=== PATIENT | female | born 1980 | race Caucasian/White ===

== ENCOUNTER → 2016-11-22 | Outpatient (REF) | payer MEDICAID | END | disposition home or self-care (01) | LOC: M SFHCLERA 16:15 | PROVIDERS: ATTEND Physician Assistant | DX: R10.30 Lower abdominal pain, unspecified (principal) ==

== ENCOUNTER → 2016-11-26 | Outpatient (CLI) | payer MEDICAID ==
--- NOTE | 2016-11-26 11:10 | REP ---
PELVIC SONOGRAPHY: HISTORY: Abnormal menses. Lower abdominal pain. FINDINGS: Transabdominal and transvaginal scanning are performed. Uterine dimensions are mildly enlarged at 10.1 x 4.4 x 5.0 cm. Endometrial echo is 1.5 cm thick and centrally placed. A very small sliver of endometrial fluid is seen. Uterine texture is somewhat heterogeneous but no definable mass lesion is seen. There is a 2.7 x 2.5 x 2.2 cm cystic area in the right ovary. Right ovarian dimensions inclusive of this cyst are 3.6 x 3.2 x 3.3 cm. The left ovary was less than optimally visualized but appears to measure 2.4 x 1.6 x 1.8 cm. No left adnexal pathology is appreciated. No free fluid is noted. IMPRESSION: 2.7 cm cystic area in the right ovary. No other abnormalities seen. Slightly prominent uterus. Signed by Dean Mueller MD 11/26/2016 01:18 P
== END | disposition home or self-care (01) ==
LOC: M LRY 09:27
PROVIDERS: ATTEND Physician Assistant
DX: R10.30 Lower abdominal pain, unspecified (principal); N92.6 Irregular menstruation, unspecified; R93.8 Abnormal findings on diagnostic imaging of other specified body structures

== ENCOUNTER → 2016-11-26 | Outpatient (REF) | payer MEDICAID ==
[2016-11-26 11:26] LABS: CONTROL LINE HCG INT CTR LINE PRESENT
[2016-11-26 11:42] LABS: FREE T4 1.05 NG/DL (0.76-1.46)
[2016-11-26 13:54] LABS: PROLACTIN 4.8 NG/ML
== END | disposition home or self-care (01) ==
LOC: M SFHCLERA 08:50
PROVIDERS: ATTEND Family Medicine
DX: Z01.419 Encounter for gynecological examination (general) (routine) without abnormal findings (principal); Z11.51 Encounter for screening for human papillomavirus (HPV); N91.2 Amenorrhea, unspecified; N76.0 Acute vaginitis
CPT/HCPCS: 84146; 84439; 84443; 84703; 87491; 87591; G0123

== ENCOUNTER → 2016-12-13 | Outpatient (CLI) | payer MEDICAID ==
--- NOTE | 2016-12-13 10:34 | REP ---
Right hip two views: Comparisons are the plain film study dated 04/19/2014 and MRI dated 07/25/2014 wall. Mineralization and joint space are normal. There is no femoral head deformity. There are no calcifications. No fracture or dislocation. Impression: Negative plain film study of the right hip. No change from the comparison plain film study. Because of the persisting symptoms right hip MRI and MRI arthrography might be considered to evaluate for avascular necrosis and / or labral tear, both of which could have normal plain film findings. Signed by Bryn Westbrook MD 12/13/2016 10:25 A
== END | disposition home or self-care (01) ==
LOC: M LRY 09:36
PROVIDERS: ATTEND Family Medicine
DX: M25.551 Pain in right hip (principal)

== ENCOUNTER 2017-02-26 05:42 | Day surgery (SDC) | payer MEDICAID, SELFPAY ==
[~2017-02-26] VITALS: Ht 167.6 cm; Wt 79.8 kg
[~2017-02-26 05:42] MED LIST: ALBU17IN INH; ALBU83IN INH
[2017-02-26] MEDS ORDERED: LR 1,000 ML IV SCH ×3 (06:00→10:15)
[2017-02-26 06:05] LABS: MEAN CORPUSCULAR HEMOGLOBIN 30.7 pg (27.0-33.0); MEAN CORPUSCULAR HGB CONC 33.7 g/dl (32.0-36.5); RED CELL DISTRIBUTION WIDTH 11.6 % (11.5-14.5); WHITE BLOOD COUNT 7.9 K/mm3 (4.0-10.0)
[2017-02-26] MEDS ORDERED: METHYLENE BLUE 0.5% (5MG/ML) 10 ML AMP (PROVAYBLUE)(Q9968 PER 1MG) As Ordered ONE (07:14)
[2017-02-26] MEDS ORDERED: BUPIVACAINE HCL 0.25% 30 ML VIAL As Ordered ONE (07:14)
[2017-02-26] MEDS ORDERED: KETOROLAC 60 MG/2 ML VIAL (J1885) As Ordered ONE (08:17)
[2017-02-26] MEDS ORDERED: ONDANSETRON 4MG/2ML VIAL (J2405) As Ordered ONE (08:17)
[2017-02-26] MEDS ORDERED: MIDAZOLAM INJ 2 MG/2 ML VIAL (J2250) As Ordered ONE (08:17)
[2017-02-26] MEDS ORDERED: fentaNYL 250 MCG/5 ML INJECTION (J3010) As Ordered ONE (08:17)
[2017-02-26] MEDS ORDERED: LIDOCAINE 2% INJ 100 MG/5 ML SDV (FOR ANES.) As Ordered ONE (08:17)
[2017-02-26] MEDS ORDERED: METOCLOPRAMIDE INJ 10MG/2ML VIAL (J2765) As Ordered ONE (08:17)
[2017-02-26] MEDS ORDERED: PROPOFOL 200 MG/20 ML VIAL As Ordered ONE (08:18)
[2017-02-26] MEDS ORDERED: NEOSTIGMINE 1MG/ML 5 ML SYRINGE (J2710) As Ordered ONE (08:18)
[2017-02-26] MEDS ORDERED: ROCURONIUM BROMIDE 50 MG/5 ML VIAL As Ordered ONE (08:18)
[2017-02-26] MEDS ORDERED: GLYCOPYRROLATE INJ 0.2 MG/ML 2 ML VIAL As Ordered ONE (08:18)
[2017-02-26] MEDS ORDERED: HYDROmorphone HCL 2 MG/ML 1ML VIAL (J1170) As Ordered ONE (08:31)
[2017-02-26] MEDS ORDERED: OXYC1TAB23 PO (09:40)
[2017-02-26] MEDS ORDERED: fentaNYL 100 MCG/2 ML INJECTION (J3010) IV PRN (10:00)
[2017-02-26] MEDS ORDERED: ONDANSETRON 4MG/2ML VIAL (J2405) IV PRN ×2 (10:00→10:15)
[2017-02-26] MEDS ORDERED: ALBUTEROL 90 MCG/ACT 8GM HFA INHALER INH PRN (10:15)
[2017-02-26] MEDS ORDERED: MORPHINE 4 MG/ML 1ML SYRINGE IV PRN (10:15)
[2017-02-26] MEDS ORDERED: PERCOCET 5MG/325MG TAB PO PRN ×2 (10:15)
[2017-02-26] MEDS ORDERED: KETOROLAC 30 MG/ML VIAL (J1885) IV PRN (10:15)
[2017-02-26] MEDS ORDERED: MORPHINE 2 MG/ML 1ML SYRINGE As Ordered ONE (11:51)
[2017-02-26] MEDS: MORPHINE 2 MG/ML 1ML SYRINGE IV PRN ×2 (11:55→12:05)
--- NOTE | 2017-02-26 12:02 | RO ---
DATE OF PROCEDURE: 02/26/2017 PREPROCEDURE DIAGNOSIS: Menorrhagia. POSTPROCEDURE DIAGNOSIS: Menorrhagia. PROCEDURE: Robotic assisted laparoscopic hysteroscopy, bilateral salpingo-oophorectomy, cystoscopy. SURGEON: Dr. Bandar Whitley. SUPERVISOR FRAME ASSEMBLY: Pippa Falcon NP ANESTHESIA: General endotracheal. ESTIMATED BLOOD LOSS: 100 mL. URINE OUTPUT: 200 mL. FINDINGS: Mildly enlarged uterus with normal fallopian tubes and ovaries bilaterally. Normal upper abdomen. OPERATIVE SUMMARY: The patient was taken to the operating room where general endotracheal anesthesia was induced. She was prepped and draped in a sterile fashion in dorsal lithotomy position. Maloney catheter was placed. A VCare uterine manipulator was placed. A periumbilical incision was made with a scalpel. A Veress needle was placed through this incision. Pneumoperitoneum was created. Veress needle was removed. An 11 mm periumbilical port was placed using Visiport. Three 8 mm suprapubic ports were placed under direct visualization. Patient was placed in Trendelenburg position. Da Chloe surgical robot was docked. Using Monopolar Endoshears and PK dissector, the IP ligament, broad ligament attachments and round ligaments were coagulated and incised. The anterior and posterior leaves of the broad ligament were . A bladder flap was created. Uterine vessels were skeletonized, coagulated, incised. Colpotomy was created using the Monopolar Endoshears and circumferentially along the upper vagina at the level of the VCare cup. Specimen including the uterus, cervix, both ovaries and fallopian tubes was removed. The vaginal cuff was closed with #1 V-loc suture in a running fashion. The pelvis was copiously irrigated. The patient received methylene blue dye intravenously. Cystoscopy was performed using a 7 degree cystoscope. Bilateral ureteral jets were identified. There was no evidence of injury to the bladder. Pippa Falcon NP, assisted from beginning to end of the procedure. She assisted with every step of the procedure. This included positioning of the patient, she manipulated the uterus throughout the entire procedure to allow surgical access. She assisted with removal of the specimen and also closure of the ports. She also undocked the robot as well. The fascia of the umbilical port was closed with #0 Vicryl, skin was closed with #4-0 Monocryl. Sponge, needle and instruments counts were correct.
[2017-02-26 13:00] VITALS: BP 105/57
[2017-02-26] MEDS ORDERED: DOCUSATE SODIUM 100 MG CAP PO SCH (21:00)
== END 2017-02-26 17:35 | disposition home or self-care (01) ==
LOC: M SDC 05:42 → M MS5PR 12:30 → M SDC 17:35
PROVIDERS: ATTEND Specialist
DX: N92.0 Excessive and frequent menstruation with regular cycle (principal); R10.2 Pelvic and perineal pain; J45.909 Unspecified asthma, uncomplicated; F17.210 Nicotine dependence, cigarettes, uncomplicated
CPT/HCPCS: 36415; 58571; 85027; 88309; J0690; J1170; J1885; J2250; J2405; J2710; J2765; J3010; Q9968

== ENCOUNTER → 2017-03-24 | Outpatient (CLI) | payer OTHER, MEDICAID ==
[~2017-03-24] MED LIST changes: +OXYC1TAB23 PO
--- NOTE | 2017-03-24 18:30 | REP ---
Clinical: Acute coccygeal pain. Technique: AP and lateral views of the sacrum and coccyx. Findings: The sacroiliac joints appear symmetric and normal. The sacrum appears intact. Acute angulation at the sacrococcygeal articulation on lateral radiograph may reflect acute versus old injury and should be correlated with physical examination and history. Impression: Acute angulation at the sacrococcygeal articulation is nonspecific and may represent acute versus chronic injury. Correlation with history and tenderness recommended. Signed by Nasim iRck MD 03/24/2017 06:22 P
--- NOTE | 2017-03-24 18:31 | REP ---
Clinical: Left-sided chest and rib pain . Comparison: 01/09/2010 . Technique: PA and lateral. Findings: The mediastinum and cardiac silhouette are normal. The lung dc are clear and without acute consolidation, effusion, or pneumothorax. The skeletal structures are intact and normal. Impression: 1. No acute cardiopulmonary process. Signed by Nasim Rick MD 03/24/2017 06:22 P
== END ==
LOC: M LRY 18:03
PROVIDERS: ATTEND Physician Assistant
DX: R07.81 Pleurodynia (principal); M53.3 Sacrococcygeal disorders, not elsewhere classified; R93.7 Abnormal findings on diagnostic imaging of other parts of musculoskeletal system

== ENCOUNTER → 2017-07-28 | Outpatient (CLI) | payer MEDICAID, OTHER ==
--- NOTE | 2017-07-28 11:00 | REP ---
REASON: Thumb pain. PRIORS: None. FINDINGS: No acute fracture or destructive osseous lesion. Signed by Balbir Mendenhall DO 07/28/2017 02:23 P
== END ==
LOC: M LRY 09:43
PROVIDERS: ATTEND Physician Assistant
DX: M79.644 Pain in right finger(s) (principal)

== ENCOUNTER → 2017-10-06 | Outpatient (REF) | payer OTHER | LOC: M SFHCLERA 20:04 | PROVIDERS: ATTEND Nurse Practitioner Family | DX: J02.9 Acute pharyngitis, unspecified (principal) ==

== ENCOUNTER → 2017-12-24 | Outpatient (CLI) | payer OTHER | LOC: M RAD 07:41 | DX: M47.812 Spondylosis without myelopathy or radiculopathy, cervical region (principal); M51.16 Intervertebral disc disorders with radiculopathy, lumbar region | CPT/HCPCS: 72141 ==

== ENCOUNTER 2017-12-29 20:48 | Emergency (ER) | payer OTHER ==
[2017-12-29] MEDS: KETOROLAC 60 MG/2 ML VIAL (J1885) IM (23:00)
[2017-12-29] MEDS: diazePAM 5 MG TAB PO (23:00)
== END 2017-12-30 00:02 | disposition home or self-care (01) ==
LOC: M ED 12-30 00:02
DX: M54.41 Lumbago with sciatica, right side (principal); M51.9 Unspecified thoracic, thoracolumbar and lumbosacral intervertebral disc disorder; Z87.891 Personal history of nicotine dependence
CPT/HCPCS: J1885

== ENCOUNTER 2018-05-31 23:26 | Emergency (ER) | payer OTHER ==
[2018-06-01 01:35] LABS: BASO # 0.1 10^3/uL (0.0-0.2); BASO % 0.5 % (0.0-1.0); EOS # 0.1 10^3/uL (0.0-0.50); EOS % 1.1 % (0.0-3.0); HEMATOCRIT 39.7 % (36.0-47.0); IMMATURE GRANULOCYTE % 0.4 % (0-3.0); LYMPH # 3.3 10^3/uL (1.5-4.5); LYMPH % 32.3 % (24.0-44.0); MEAN CORPUSCULAR HEMOGLOBIN 28.8 pg (27.0-33.0); MEAN CORPUSCULAR HGB CONC 32.7 g/dl (32.0-36.5); MEAN CORPUSCULAR VOLUME 87.8 fl (80.0-96.0); MONO # 0.7 10^3/uL (0.0-0.8); MONO % 6.6 % (0.0-5.0); NEUTROPHILS % 59.1 % (36.0-66.0); PLATELET COUNT, AUTOMATED 264 10^3/uL (150-450); RED BLOOD COUNT 4.52 10^6/uL (4.00-5.40); WHITE BLOOD COUNT 10.1 10^3/uL (4.0-10.0)
[2018-06-01 02:14] LABS: ALBUMIN 3.7 GM/DL (3.2-5.2); ALBUMIN/GLOBULIN RATIO 1.03 (1.00-1.93); ALKALINE PHOSPHATASE 122 U/L (45-117); ALT/SGPT 44 U/L (12-78); ANION GAP 5 MEQ/L (8-16); AST/SGOT 30 U/L (7-37); BILIRUBIN,DIRECT < 0.1 MG/DL (0.0-0.2); BILIRUBIN,TOTAL 0.2 MG/DL (0.2-1.0); BLOOD UREA NITROGEN 11 MG/DL (7-18); CARBON DIOXIDE LEVEL 33 MEQ/L (21-32); CHLORIDE LEVEL 104 MEQ/L (98-107); GLOMERULAR FILTRATION RATE > 60.0 (>60); GLUCOSE, FASTING 104 MG/DL (70-100); POTASSIUM SERUM 4.5 MEQ/L (3.5-5.1); SODIUM LEVEL 142 MEQ/L (136-145); TOTAL PROTEIN 7.3 GM/DL (6.4-8.2)
== END 2018-06-01 02:50 | disposition home or self-care (01) ==
LOC: M ED 23:26
DX: K59.00 Constipation, unspecified (principal); J45.909 Unspecified asthma, uncomplicated; Z87.891 Personal history of nicotine dependence
CPT/HCPCS: 76705

== ENCOUNTER 2018-09-05 21:54 | Emergency (ER) | payer OTHER ==
[2018-09-05] MEDS: NS 1,000 ML IV (22:15)
[2018-09-05] MEDS: ONDANSETRON 4MG/2ML VIAL (J2405) IV (22:15)
[2018-09-05 22:34] LABS: BASO # 0.1 10^3/uL (0.0-0.2); BASO % 0.6 % (0.0-1.0); EOS # 0.1 10^3/uL (0.0-0.50); EOS % 1.3 % (0.0-3.0); HEMOGLOBIN 13.6 g/dl (12.0-15.5); IMMATURE GRANULOCYTE % 0.3 % (0-3.0); LYMPH # 3.3 10^3/uL (1.5-4.5); LYMPH % 34.8 % (24.0-44.0); MEAN CORPUSCULAR HEMOGLOBIN 28.8 pg (27.0-33.0); MEAN CORPUSCULAR HGB CONC 33.2 g/dl (32.0-36.5); MEAN CORPUSCULAR VOLUME 86.7 fl (80.0-96.0); MONO # 0.6 10^3/uL (0.0-0.8); MONO % 6.3 % (0.0-5.0); NEUTROPHILS # 5.5 10^3/uL (1.8-7.7); NEUTROPHILS % 56.7 % (36.0-66.0); PLATELET COUNT, AUTOMATED 269 10^3/uL (150-450); RED BLOOD COUNT 4.73 10^6/uL (4.00-5.40); RED CELL DISTRIBUTION WIDTH 12.3 % (11.5-14.5); WHITE BLOOD COUNT 9.6 10^3/uL (4.0-10.0)
[2018-09-05 22:55] LABS: CALCIUM OXALATE CRYSTALS RFX LARGE; KETONE, URINE AUTO RFX TRACE mg/dL (NEGATIVE); LEUKOCYTE ESTERASE UR AUTO RFX TRACE (NEGATIVE); MUCUS, URINE RFX LARGE (NEGATIVE); NITRITE, URINE AUTO RFX NEGATIVE (NEGATIVE); RBC, URINE AUTO RFX 0 /HPF (0-3); SPECIFIC GRAVITY UR AUTO RFX 1.033 (1.002-1.035); SQUAM EPITHELIAL CELL UR AURFX 13 /HPF (0-6); WBC, URINE AUTO RFX 5 /HPF (0-3)
[2018-09-05 22:58] LABS: ALBUMIN 4.1 GM/DL (3.2-5.2); ALKALINE PHOSPHATASE 128 U/L (45-117); ALT/SGPT 38 U/L (12-78); ANION GAP 5 MEQ/L (8-16); AST/SGOT 28 U/L (7-37); BILIRUBIN,DIRECT < 0.1 MG/DL (0.0-0.2); BILIRUBIN,TOTAL 0.3 MG/DL (0.2-1.0); BLOOD UREA NITROGEN 11 MG/DL (7-18); CALCIUM LEVEL 9.5 MG/DL (8.5-10.1); CARBON DIOXIDE LEVEL 32 MEQ/L (21-32); CHLORIDE LEVEL 104 MEQ/L (98-107); CREATININE FOR GFR 1.07 MG/DL (0.55-1.30); GLOMERULAR FILTRATION RATE > 60.0 (>60); GLUCOSE, FASTING 78 MG/DL (70-100); LIPASE 124 U/L (73-393); POTASSIUM SERUM 3.8 MEQ/L (3.5-5.1); SODIUM LEVEL 141 MEQ/L (136-145); TOTAL PROTEIN 8.2 GM/DL (6.4-8.2)
[2018-09-05] MEDS ORDERED: ISOVUE-370 76% 100ML VIAL (Q9967) As Ordered (23:02)
== END 2018-09-06 00:09 | disposition home or self-care (01) ==
LOC: M ED 09-06 00:09
DX: K76.0 Fatty (change of) liver, not elsewhere classified (principal); M54.30 Sciatica, unspecified side
CPT/HCPCS: J2405

== ENCOUNTER → 2018-09-09 | Outpatient (REF) | payer OTHER | LOC: M LAB REF 14:24 | DX: R19.7 Diarrhea, unspecified (principal) | CPT/HCPCS: 87507 ==

== ENCOUNTER → 2018-12-24 | Outpatient (CLI) | payer OTHER ==
[~2018-12-24] MED LIST changes: +KETO10TAB PO; +NEUR600T PO; +VALI5TAB PO; +ZOFR4TAB14 PO
--- NOTE | 2018-12-24 15:41 | REP ---
RIGHT BREAST ULTRASOUND: 12/24/2018. Clinical history: Palpable area in the lower outer quadrant right breast for sonography to compare to mammogram. She also reports upper inner quadrant palpable finding at about the 1 o'clock position in addition. Findings: Sonographic evaluation of the lower outer quadrant of the right breast in the region of the palpable area centered at the 7 to 8 o'clock position, but scanned from 6 to 9 o'clock. Patient also stated she had a lump at the 1 o'clock position upper inner quadrant right breast. In the lower outer quadrant 7 to 8 o'clock position where she had a reported palpable finding there is echogenic heterogeneous dense breast tissue without discrete mass, architectural distortion, dilated duct or cyst. In the upper inner quadrant at the 1 o'clock position where she reports a palpable finding there is likewise no mass, cyst, architectural distortion or dilated duct. Impression: 1. Two palpable areas in the upper inner and the lower outer quadrant right breast were scanned with sonographic technique and show no definable mass, cyst, architectural distortion or dilated duct. 2. BI-RADS ACR category 1 negative. Please see mammogram report for final assessment and recommendation. Electronically Signed by Last Russell MD 12/24/2018 07:35 P
--- NOTE | 2018-12-24 15:47 | REP ---
DIAGNOSTIC DIGITAL RIGHT MAMMOGRAM: 12/24/2018. Comparison: Right breast ultrasound this date. Clinical history: Baseline mammogram with palpable finding lower outer quadrant right breast and also she stated to the electroencephalograph technologist, a palpable area at 1 o'clock. Findings: This is a baseline mammogram. Standard CC and MLO views with spot magnified CC, MLO and true ML images of the lower outer quadrant right breast along with CC and MLO, tomosynthesis views of the whole breast. Marker placed by the patient at the area of her reported palpable finding. There are scattered fibroglandular elements fairly evenly distributed in the breast parenchyma and which may obscure a lesion. I see no dominant mass, area of architectural distortion, suspicious cluster of microcalcification or other secondary sign of malignancy on the standard views. A few fat replaced axillary nodes are seen on the right. The spot magnified CC, MLO and true ML views show no underline mass, architectural distortion, clustered microcalcification or other secondary sign of malignancy. The tomosynthesis views show nothing in this area. Standard and tomosynthesis views also show nothing in the upper inner quadrant at the 1 o'clock position where she also described a reported finding. Right breast ultrasound lower out quadrant centered at 7 to 8 o'clock but scanning the entire quadrant and also at the 1 o'clock position upper inner quadrant demonstrated no dominant mass, architectural distortion, cyst or dilated duct. Impression: 1. BIRADS 2: BI-RADS/ACR category 2 mammogram. Benign Findings. No evidence of malignancy. 2. Recommend followup mammography at age 41 or sooner if clinically indicated. The patient's Tyrer-Cuzick lifetime risk assessment score is 17.9%. This mammogram was interpreted with the aid of an FDA-approved computer-aided detection system. The patient states she/he had a clinical breast exam in 12/22/2018. Electronically Signed by Last Russell MD 12/24/2018 07:36 P
== END ==
LOC: M RAD 14:02
PROVIDERS: ATTEND Nurse Practitioner Family
DX: N63.13 Unspecified lump in the right breast, lower outer quadrant (principal)
CPT/HCPCS: 76642; 77065; G0279

== ENCOUNTER → 2018-12-31 | Outpatient (REF) | payer OTHER | LOC: M SFHCLERA 15:55 | PROVIDERS: ATTEND Nurse Practitioner Family | DX: R50.9 Fever, unspecified (principal) ==

== ENCOUNTER → 2019-10-20 | Outpatient (CLI) | payer OTHER | LOC: M LRY 15:37 | PROVIDERS: ATTEND Nurse Practitioner Family | DX: Z53.9 Procedure and treatment not carried out, unspecified reason (principal); M25.532 Pain in left wrist ==

== ENCOUNTER → 2019-10-21 | Outpatient (CLI) | payer BC, OTHER ==
--- NOTE | 2019-10-21 13:39 | REP ---
Four views left wrist: 10/20/2019. Indication: Left wrist pain. Comparison: None. Findings: There is no acute fracture, subluxation or dislocation. No lytic or blastic lesions are present. Impression: No acute osseous left wrist injury. Electronically Signed by Steven Rehman DO 10/20/2019 04:10 P
== END ==
LOC: M LRY 10-20 15:33
PROVIDERS: ATTEND Nurse Practitioner Family
DX: M25.532 Pain in left wrist (principal)

== ENCOUNTER → 2020-04-17 | Outpatient (CLI) | payer BC, OTHER ==
--- NOTE | 2020-04-17 09:05 | REPPI ---
Clinical: Lumbago with right-sided sciatica. Technique: AP, lateral, bilateral oblique and coned-down views of the lumbosacral spine. Findings: Alignment and lordosis maintained. Minimal endplate sclerosis and disc space narrowing at L5-S1 cannot be excluded along with very subtle marginal spurring at L1-2 and L2-3 without significant disc space narrowing. No further degenerative changes are noted. No acute fracture / compression injury or subluxation. No obvious spondylolysis or spondylolisthesis. Impression: Minimal degenerative changes suggested. If the patient remains symptomatic consider MRI for further investigation. Electronically Signed by Nasim Rick MD 04/17/2020 08:57 A
--- NOTE | 2020-04-17 09:09 | REPPI ---
Clinical: Lumbago with right-sided sciatica. Technique: Frontal view of the pelvis with neutral and frog lateral views of the right hip. Findings: Osseous structures are intact and there is no evidence for acute fracture dislocation. Hip joints demonstrate mild age-related changes including increase sclerosis to the acetabular roof with superior joint space narrowing and very early marginal spurring. 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 Electronically Signed by Nasim Rick MD 04/17/2020 09:01 A
== END ==
LOC: M PLAIMG 08:36
PROVIDERS: ATTEND Physician Assistant
DX: M54.41 Lumbago with sciatica, right side (principal)

== ENCOUNTER 2020-05-24 21:36 | Emergency (ER) | payer BC, OTHER ==
[~2020-05-24] VITALS: Ht 167.6 cm; Wt 85.9 kg
[2020-05-24] MEDS ORDERED: GABA-843 PO (21:49)
[2020-05-24] MEDS ORDERED: NAPR-885 PO (21:49)
[2020-05-24] MEDS ORDERED: GABAPENTIN 300 MG CAP PO ONE (23:15)
[2020-05-24] MEDS ORDERED: CYCLOBENZAPRINE 10MG TABLET PO ONE (23:15)
[2020-05-25] MEDS ORDERED: KETOROLAC 60MG 2ML VIAL IM ONE
[2020-05-25] MEDS ORDERED: LIDOCAINE 5% (LIDODERM) PATCH TD ONE (00:15)
[2020-05-25] MEDS ORDERED: diazePAM 5 MG TAB PO ONE (00:15)
[2020-05-25] MEDS ORDERED: CYCL5TAB PO (01:49)
[2020-05-25 02:07] VITALS: BP 120/76
[2020-05-25] MEDS ORDERED: **NOTE PATIENT COMMENT** MISC XX SCH (21:00)
== END 2020-05-25 02:09 | disposition home or self-care (01) ==
LOC: M ED 21:36
DX: M54.41 Lumbago with sciatica, right side (principal); M62.830 Muscle spasm of back; J45.909 Unspecified asthma, uncomplicated; Z79.1 Long term (current) use of non-steroidal anti-inflammatories (NSAID); Z79.899 Other long term (current) drug therapy
CPT/HCPCS: 96372; 99283; J1885

== ENCOUNTER → 2020-06-28 | Outpatient (CLI) | payer BC ==
[~2020-06-28] MED LIST changes: +CYCL5TAB PO; +GABA-843 PO; +NAPR-885 PO
[2020-06-28 14:34] LABS: FOLATE 20.8 NG/ML (>5.4); RHEUMATOID FACTOR QUANT < 10.0 IU/ML (<15.0); TOTAL PROTEIN 7.1 GM/DL (6.4-8.2); VITAMIN B12 LEVEL 418 PG/ML (247-911)
[2020-06-28 15:37] LABS: HEMOGLOBIN A1c 5.9 %
[2020-06-29 13:11] LABS: ALBUMIN 4.08 GM/DL (3.29-5.55); ALBUMIN % 57.4 % (55.8-66.1); ALPHA-1-GLOBULIN % 4.6 % (2.9-4.9); ALPHA-1-GLOBULINS 0.33 GM/DL (0.17-0.41); ALPHA-2-GLOBULINS 0.86 GM/DL (0.42-0.99); ALPHA-2-GLOBULINS % 12.1 % (7.1-11.8); BETA-1-GLOBULINS 0.46 GM/DL (0.28-0.60); BETA-1-GLOBULINS % 6.5 % (4.7-7.2); BETA-2-GLOBULINS 0.45 GM/DL (0.19-0.55); BETA-2-GLOBULINS % 6.4 % (3.2-6.5); GAMMA GLOBULINS 0.92 GM/DL (0.65-1.58)
[2020-06-29 14:14] LABS: ANTINUCLEAR ANTIBODIES DIRECT Negative (Negative)
[2020-07-04 12:25] LABS: DRVV SCREEN 44.8 SEC
[2020-07-04 12:27] LABS: PTT LUPUS TYPE ANTICOAG SCREEN 1.1 (0-1.2)
== END ==
LOC: M PLALAB 12:02
PROVIDERS: ATTEND Psychiatry & Neurology Neurology
DX: M54.5 Low back pain (principal); G62.9 Polyneuropathy, unspecified

== ENCOUNTER → 2020-10-07 | Outpatient (CLI) | payer BC ==
[2020-10-07 09:41] LABS: PLATELET COUNT, AUTOMATED 229 10^3/uL (150-450)
[2020-10-07 09:53] LABS: INR 0.98; PARTIAL THROMBOPLASTIN TIME 27.4 SECONDS (24.2-38.5); PROTHROMBIN TIME 13.2 SECONDS (12.5-14.3)
== END ==
LOC: M LAB 08:59
PROVIDERS: ATTEND Physician Assistant
DX: M51.36 Other intervertebral disc degeneration, lumbar region (principal); M48.061 Spinal stenosis, lumbar region without neurogenic claudication; M54.16 Radiculopathy, lumbar region

== ENCOUNTER → 2020-10-11 | Outpatient (CLI) | payer BC | LOC: M LABSMTC 10:47 | PROVIDERS: ATTEND Physical Medicine & Rehabilitation | DX: Z01.812 Encounter for preprocedural laboratory examination (principal); Z20.828 Contact with and (suspected) exposure to other viral communicable diseases ==

== ENCOUNTER → 2021-11-22 | Outpatient (REF) | payer BC ==
[~2021-11-22] MED LIST changes: +GABA-282 PO; -GABA-843 PO
[2021-11-23 12:21] LABS: BASO # 0.1 10^3/uL (0.0-0.2); BASO % 0.6 % (0.0-1.0); EOS # 0.1 10^3/uL (0.0-0.5); EOS % 0.9 % (0.0-3.0); HEMATOCRIT 44.6 % (36.0-47.0); LYMPH # 2.7 10^3/uL (1.5-5.0); MEAN CORPUSCULAR HEMOGLOBIN 27.7 pg (27.0-33.0); MEAN CORPUSCULAR HGB CONC 31.4 g/dl (32.0-36.5); MEAN CORPUSCULAR VOLUME 88.1 fl (80.0-96.0); MONO # 0.7 10^3/uL (0.0-0.8); MONO % 6.9 % (2.0-8.0); NEUTROPHILS # 7.1 10^3/uL (1.5-8.5); NEUTROPHILS % 66.2 % (36.0-66.0); PLATELET COUNT, AUTOMATED 297 10^3/uL (150-450); RED BLOOD COUNT 5.06 10^6/uL (4.00-5.40); WHITE BLOOD COUNT 10.7 10^3/uL (4.0-10.0)
[2021-11-23 13:01] LABS: ALBUMIN 3.6 GM/DL (3.2-5.2); ALT/SGPT 48 U/L (12-78); BILIRUBIN,TOTAL 0.2 MG/DL (0.2-1.0); BLOOD UREA NITROGEN 9 MG/DL (7-18); CALCIUM LEVEL 9.3 MG/DL (8.5-10.1); CARBON DIOXIDE LEVEL 29 MEQ/L (21-32); CHLORIDE LEVEL 102 MEQ/L (98-107); CREATININE FOR GFR 0.87 MG/DL (0.55-1.30); GLOMERULAR FILTRATION RATE > 60.0 (>58); GLUCOSE, FASTING 84 MG/DL (70-100); POTASSIUM SERUM 6.3 MEQ/L (3.5-5.1); SODIUM LEVEL 136 MEQ/L (136-145); TOTAL PROTEIN 7.4 GM/DL (6.4-8.2)
== END ==
LOC: M SFHCCLAY 14:55
PROVIDERS: ATTEND Nurse Practitioner Family
DX: J45.901 Unspecified asthma with (acute) exacerbation (principal)

== ENCOUNTER → 2021-12-06 | Outpatient (REF) | payer BC | LOC: M SFHCCLAY 10:08 | PROVIDERS: ATTEND Physician Assistant | DX: E87.5 Hyperkalemia (principal) ==

== ENCOUNTER → 2023-02-12 | Outpatient (REF) | payer BC ==
[~2023-02-12] MED LIST changes: +ALBU2.5V10 INH; -ALBU83IN INH
[2023-02-12 18:01] LABS: ALBUMIN 3.5 G/DL (3.2-5.2); ALKALINE PHOSPHATASE 120 U/L (46-116); ALT/SGPT 52 U/L (7.0-40); AST/SGOT 22 U/L (<34); BILIRUBIN,TOTAL 0.7 MG/DL (0.3-1.2); BLOOD UREA NITROGEN 12 MG/DL (9-23); CARBON DIOXIDE LEVEL 31 MMOL/L (20-31); CHLORIDE LEVEL 104 MMOL/L (98-107); CREATININE FOR GFR 0.88 MG/DL (0.55-1.30); GLOMERULAR FILTRATION RATE > 60.0 (>58); GLUCOSE, FASTING 123 MG/DL (60-100); POTASSIUM SERUM 4.4 MMOL/L (3.5-5.1); SODIUM LEVEL 138 MMOL/L (136-145); TOTAL PROTEIN 6.7 G/DL (5.7-8.2)
[2023-02-12 18:03] LABS: RHEUMATOID FACTOR QUANT 6.8 IU/ML (<14)
== END ==
LOC: M LABDRAWC 17:13
PROVIDERS: ATTEND Physician Assistant
DX: M47.896 Other spondylosis, lumbar region (principal)

== ENCOUNTER → 2023-05-02 | Outpatient (CLI) | payer BC | LOC: M PLAIMG 14:14 | PROVIDERS: ATTEND Physician Assistant | DX: M24.151 Other articular cartilage disorders, right hip (principal) ==

== ENCOUNTER → 2023-07-22 | Outpatient (CLI) | payer BC ==
[2023-07-22 10:46] LABS: URIC ACID 6.9 MG/DL (3.1-7.8)
[2023-07-22 10:49] LABS: RHEUMATOID FACTOR QUANT < 3.5 IU/ML (<14)
[2023-07-23 21:07] LABS: ANTINUCLEAR ANTIBODIES DIRECT Negative (Negative); CYCLIC CITRULLINATED PEPTIDE 1 units (0-19)
== END ==
LOC: M LAB 09:47
PROVIDERS: ATTEND Orthopaedic Surgery
DX: M25.551 Pain in right hip (principal)

== ENCOUNTER 2024-01-25 16:17 | Emergency (ER) | payer BC ==
[~2024-01-25] VITALS: Ht 167.6 cm; Wt 86.1 kg
[2024-01-25] MEDS: ASPIRIN 81MG CHEW TABLET PO ONE (17:02)
[2024-01-25 17:12] LABS: BASO # 0.1 10^3/uL (0.0-0.2); BASO % 0.9 % (0.0-1.0); EOS # 0.1 10^3/uL (0.0-0.5); EOS % 1.3 % (0.0-3.0); HEMATOCRIT 42.5 % (36.0-47.0); HEMOGLOBIN 13.7 g/dl (12.0-15.5); LYMPH # 2.8 10^3/uL (1.5-5.0); LYMPH % 30.7 % (24.0-44.0); MEAN CORPUSCULAR HEMOGLOBIN 27.9 pg (27.0-33.0); MEAN CORPUSCULAR HGB CONC 32.2 g/dl (32.0-36.5); MEAN CORPUSCULAR VOLUME 86.6 fl (80.0-96.0); MONO # 0.6 10^3/uL (0.0-0.8); NEUTROPHILS # 5.4 10^3/uL (1.5-8.5); NEUTROPHILS % 59.8 % (36.0-66.0); PLATELET COUNT, AUTOMATED 266 10^3/uL (150-450); RED BLOOD COUNT 4.91 10^6/uL (4.00-5.40)
[2024-01-25 17:27] LABS: CK-MB VALUE MASS < 1.0 NG/ML (<3.6)
[2024-01-25 17:28] LABS: BLOOD UREA NITROGEN 12 MG/DL (9-23); CALCIUM LEVEL 9.1 MG/DL (8.5-10.1); CARBON DIOXIDE LEVEL 31 MMOL/L (20-31); CHLORIDE LEVEL 106 MMOL/L (98-107); CPK CREATINE PHOSPHOKINASE 125 U/L (34-145); CREATININE FOR GFR 0.86 MG/DL (0.55-1.30); GLOMERULAR FILTRATION RATE > 60.0 (>58); GLUCOSE, FASTING 93 MG/DL (60-100); POTASSIUM SERUM 3.6 MMOL/L (3.5-5.1); SODIUM LEVEL 141 MMOL/L (136-145)
[2024-01-25 18:19] VITALS: BP 123/72; TEMP 98.2; O2SAT 99
[2024-01-25 18:31] LABS: CK-MB VALUE MASS < 1.0 NG/ML (<3.6)
[2024-01-25 18:35] LABS: CPK CREATINE PHOSPHOKINASE 115 U/L (34-145); MB/CK RELATIVE INDEX 0.86 (< OR =4)
== END 2024-01-25 18:22 | disposition home or self-care (01) ==
LOC: M ED 16:17
DX: R07.9 Chest pain, unspecified (principal); J45.909 Unspecified asthma, uncomplicated; R94.31 Abnormal electrocardiogram [ECG] [EKG]; Z79.51 Long term (current) use of inhaled steroids

== ENCOUNTER 2025-01-26 15:34 | Emergency (ER) | payer BC ==
[~2025-01-26] VITALS: Ht 167.6 cm; Wt 86.2 kg
[~2025-01-26 15:34] MED LIST changes: -CYCL5TAB PO; +CYCL5TAB4 PO; +GABA-1172 PO; -GABA-282 PO
[2025-01-26] MEDS: ONDANSETRON 4MG 2ML VIAL IV ONE (17:11)
[2025-01-26] MEDS: MORPHINE 4 MG/ML 1ML VIAL IV ONE (17:11)
[2025-01-26 17:22] LABS: BASO # 0.1 10^3/uL (0.0-0.2); BASO % 0.3 % (0.0-1.0); EOS % 0.1 % (0.0-3.0); HEMATOCRIT 44.6 % (36.0-47.0); HEMOGLOBIN 14.8 g/dl (12.0-15.5); LYMPH # 0.9 10^3/uL (1.5-5.0); LYMPH % 5.9 % (24.0-44.0); MEAN CORPUSCULAR HEMOGLOBIN 28.4 pg (27.0-33.0); MEAN CORPUSCULAR HGB CONC 33.2 g/dl (32.0-36.5); MEAN CORPUSCULAR VOLUME 85.6 fl (80.0-96.0); MONO # 0.7 10^3/uL (0.0-0.8); MONO % 4.6 % (2.0-8.0); NEUTROPHILS # 12.9 10^3/uL (1.5-8.5); NEUTROPHILS % 88.5 % (36.0-66.0); PLATELET COUNT, AUTOMATED 278 10^3/uL (150-450); RED BLOOD COUNT 5.21 10^6/uL (4.00-5.40); WHITE BLOOD COUNT 14.5 10^3/uL (4.0-10.0)
[2025-01-26 17:43] LABS: ALBUMIN 4.1 G/DL (3.2-5.2); BILIRUBIN,DIRECT 0.2 MG/DL (<0.4); BILIRUBIN,TOTAL 0.6 MG/DL (0.3-1.2); TOTAL PROTEIN 8.1 G/DL (5.7-8.2)
[2025-01-26] MEDS: METOCLOPRAMIDE INJ 10MG/2ML VIAL IV ONE (19:12)
[2025-01-26] MEDS: KETOROLAC 30 MG/ML 1ML VIAL IV ONE (19:14)
[2025-01-26] MEDS ORDERED: REGL10TA6 PO (20:24)
[2025-01-26 20:48] VITALS: BP 109/73; TEMP 99; O2SAT 95
== END 2025-01-26 20:51 | disposition home or self-care (01) ==
LOC: M ED 15:34
DX: A08.39 Other viral enteritis (principal); B34.8 Other viral infections of unspecified site; R11.2 Nausea with vomiting, unspecified; R19.7 Diarrhea, unspecified; J45.909 Unspecified asthma, uncomplicated; Z87.891 Personal history of nicotine dependence; Z88.5 Allergy status to narcotic agent; Z79.51 Long term (current) use of inhaled steroids
CPT/HCPCS: 80047; 80076; 83690; 85025; 87486; 87507; 87581; 87633; 87798; 96374; 96375; 99284; J1885; J2405; J2765

== ENCOUNTER → 2025-07-26 | Outpatient (REF) | payer BC ==
[~2025-07-26] MED LIST changes: +REGL10TA6 PO
[2025-07-26 19:17] LABS: ALT/SGPT 23 U/L (7.0-40); AST/SGOT 20 U/L (<34); BASO # 0.1 10^3/uL (0.0-0.2); BASO % 1.0 % (0.0-1.0); CALCIUM LEVEL 9.0 MG/DL (8.5-10.1); CARBON DIOXIDE LEVEL 32 MMOL/L (20-31); CHLORIDE LEVEL 103 MMOL/L (98-107); CHOLESTEROL LEVEL 146 MG/DL (<200); CHOLESTEROL RISK RATIO 3.02 (<5); CREATININE FOR GFR 0.73 MG/DL (0.55-1.30); EOS # 0.2 10^3/uL (0.0-0.5); EOS % 2.4 % (0.0-3.0); GLOMERULAR FILTRATION RATE > 90.0 (>58); LDL CHOLESTEROL 68.2 MG/DL (<100); LYMPH # 3.6 10^3/uL (1.5-5.0); LYMPH % 43.7 % (24.0-44.0); MONO # 0.6 10^3/uL (0.0-0.8); MONO % 7.3 % (2.0-8.0); NEUTROPHILS # 3.8 10^3/uL (1.5-8.5); NEUTROPHILS % 45.4 % (36.0-66.0); NON-HDL-C 97.8 MG/DL; PLATELET COUNT, AUTOMATED 251 10^3/uL (150-450); POTASSIUM SERUM 4.1 MMOL/L (3.5-5.1); SODIUM LEVEL 140 MMOL/L (136-145); TRIGLYCERIDES LEVEL 148 MG/DL (<150)
[2025-07-26 19:18] LABS: TOTAL 25(OH) VITAMIN D 25.0 NG/ML (20.0-100.0)
[2025-07-26 20:03] LABS: ESTIMATED AVERAGE GLUCOSE 114.0 MG/DL (60-110)
== END ==
LOC: M SFHCLERA 09:06
PROVIDERS: ATTEND Internal Medicine
DX: Z00.00 Encounter for general adult medical examination without abnormal findings (principal); R53.83 Other fatigue

== ENCOUNTER → 2025-09-02 | Outpatient (REF) | payer BC ==
[2025-09-02 18:27] LABS: FREE T4 1.17 NG/DL (0.89-1.76)
== END ==
LOC: M SFHCLERA 10:53
PROVIDERS: ATTEND Internal Medicine
DX: E03.9 Hypothyroidism, unspecified (principal)

== ENCOUNTER → 2025-10-21 | Outpatient (CLI) | payer BC | LOC: M WHC 08:06 | PROVIDERS: ATTEND Internal Medicine | DX: R92.323 Mammographic fibroglandular density, bilateral breasts (principal); R92.2 Inconclusive mammogram ==

== ENCOUNTER → 2025-10-24 | Outpatient (REF) | payer BC ==
[2025-10-24 18:56] LABS: CALCIUM LEVEL 9.2 MG/DL (8.5-10.1); CARBON DIOXIDE LEVEL 34 MMOL/L (20-31); CHLORIDE LEVEL 102 MMOL/L (98-107); CREATININE FOR GFR 0.73 MG/DL (0.55-1.30); GLOMERULAR FILTRATION RATE > 90.0 (>58); POTASSIUM SERUM 4.5 MMOL/L (3.5-5.1); SODIUM LEVEL 142 MMOL/L (136-145)
[2025-10-24 19:00] LABS: FREE T4 1.47 NG/DL (0.89-1.76)
[2025-10-24 19:16] LABS: BASO # 0.1 10^3/uL (0.0-0.2); BASO % 0.9 % (0.0-1.0); EOS # 0.1 10^3/uL (0.0-0.5); EOS % 2.0 % (0.0-3.0); LYMPH # 2.4 10^3/uL (1.5-5.0); LYMPH % 34.9 % (24.0-44.0); MONO # 0.6 10^3/uL (0.0-0.8); MONO % 8.2 % (2.0-8.0); NEUTROPHILS # 3.8 10^3/uL (1.5-8.5); NEUTROPHILS % 53.7 % (36.0-66.0); PLATELET COUNT, AUTOMATED 262 10^3/uL (150-450)
== END ==
LOC: M SFHCLERA 09:05
PROVIDERS: ATTEND Internal Medicine
DX: E03.8 Other specified hypothyroidism (principal); H93.A9 Pulsatile tinnitus, unspecified ear

== ENCOUNTER → 2025-10-25 | Outpatient (CLI) | payer BC ==
[~2025-10-25] MED LIST changes: +ISOVUE-370 76% 100 ML VIAL ONE
== END ==
LOC: M PLAIMG 08:08
PROVIDERS: ATTEND Internal Medicine
DX: H93.A9 Pulsatile tinnitus, unspecified ear (principal)
CPT/HCPCS: 70496; 70498; Q9967